=== PATIENT | male | born 1995 | race Caucasian/White ===

== ENCOUNTER 2019-06-29 08:51 | Emergency (ER) | payer BC ==
[2019-06-29 09:10] VITALS: BP 148/88
--- NOTE | 2019-06-29 09:48 | UC ---
Respiratory Complaint HPI - HPI Summary HPI Summary: cough x 7 days cough is dry , worse with deep breathing / better with rest, sore throat, pnd, nasal congestion , fever, chills body aches no recent travels mild nausea, - History of Current Complaint Chief Complaint: UCRespiratory Stated Complaint: RUNNY NOSE,VOMITTING Time Seen by Provider: 06/29/19 09:34 Hx Obtained From: Patient Onset/Duration: Gradual Onset, Lasting Days - 7, Still Present Timing: Constant Severity Initially: Moderate Severity Currently: Moderate Pain Intensity: 0 Character: Cough: Nonproductive Aggravating Factors: Exertion, Deep Breaths Alleviating Factors: Nothing Associated Signs And Symptoms: Positive: Fever, Chills, URI, Nasal Congestion. Negative: Dizziness - Allergies/Home Medications Allergies/Adverse Reactions: Allergies Allergy/AdvReac Type Severity Reaction Status Date / Time pollen extracts Allergy Runny Nose Verified 06/29/19 09:05 Home Medications: Home Medications NK [No Home Medications Reported] 06/29/19 [History Confirmed 06/29/19] PMH/Surg Hx/FS Hx/Imm Hx Previously Healthy: Yes - Surgical History Surgical History: None - Family History Known Family History: Negative: Diabetes - Social History Alcohol Use: Weekly Substance Use Type: Marijuana Substance Use Comment - Amount & Last Used: Occasionally Smoking Status (MU): Never Smoked Tobacco Review of Systems All Other Systems Reviewed And Are Negative: Yes Constitutional: Positive: Fever, Chills, Fatigue Skin: Positive: Negative Eyes: Positive: Negative ENT: Positive: Sore Throat, Nasal Discharge Respiratory: Positive: Cough Cardiovascular: Positive: Negative Is Patient Immunocompromised?: No Physical Exam Triage Information Reviewed: Yes Appearance: Well-Appearing, No Pain Distress, Well-Nourished Vital Signs: Initial Vital Signs Temp 98.1 F 06/29/19 08:58 Pulse 89 06/29/19 08:58 Resp 18 06/29/19 08:58 BP 148/88 06/29/19 08:58 Pulse Ox 99 06/29/19 08:58 Vital Signs Reviewed: Yes Eye Exam: Normal Eyes: Positive: Conjunctiva Clear ENT: Positive: Normal ENT inspection, Hearing grossly normal, Pharynx normal, Nasal congestion, Nasal drainage, TMs normal. Negative: Pharyngeal erythema Neck: Positive: Supple, Nontender, No Lymphadenopathy Respiratory: Positive: Chest non-tender, Lungs clear, Normal breath sounds Cardiovascular: Positive: RRR, No Murmur, Pulses Normal Abdominal Exam: Normal Respiratory Course/Dx - Course Course Of Treatment: elevated BP : monitor your bp at home , follow up with your pcp in one week - Differential Dx/Diagnosis Provider Diagnosis: Viral illness, Elevated BP without diagnosis of hypertension Discharge ED - Sign-Out/Discharge Documenting (check all that apply): Patient Departure All imaging exams completed and their final reports reviewed: No Studies - Discharge Plan Condition: Stable Disposition: HOME Patient Education Materials: Viral Syndrome (ED) Forms: *Work Release Referrals: Monica Sellers MD [Primary Care Provider] - If Needed - Billing Disposition and Condition Condition: STABLE Disposition: Home
== END 2019-06-29 09:46 | disposition home or self-care (01) ==
LOC: UCCORT 08:51
DX: B34.9 Viral infection, unspecified (principal); I10 Essential (primary) hypertension; R05 Cough; J02.9 Acute pharyngitis, unspecified; R09.82 Postnasal drip; R09.81 Nasal congestion; R68.83 Chills (without fever); R52 Pain, unspecified; R11.0 Nausea; R53.83 Other fatigue; R09.89 Other specified symptoms and signs involving the circulatory and respiratory systems; Z91.09 Other allergy status, other than to drugs and biological substances
CPT/HCPCS: 99201; G0463

== ENCOUNTER 2019-07-13 08:26 | Emergency (ER) | payer BC, OTHER ==
[2019-07-13 09:36] VITALS: BP 127/60
--- NOTE | 2019-07-13 11:07 | UC ---
FLU HPI - HPI Summary HPI Summary: Patient concerned about covid. Patient was a video conference with me Patient's a 24-year-old male who states on 06/28 he is evaluated urgent care diagnosis of a viral syndrome. Patient states he was having high fevers and body aches. Patient states he was feeling better for about 5 days when he certainly gets again. Patient states the last 5 days he's been having body aches, having nausea with some vomiting. Having tactile fevers. Patient also with a cough. No sore throat. No shortness of breath. Cough is nonproductive. No chest pain. No abdominal pain. No diarrhea. Patient was able to take Tylenol E something small this morning. Patient states he lives with his parents. Patient works at [employer] and has had lots of contact with the public. Patient's concerned he could have covid. Patient does not have a history of lung disease. Patient does not vape or use tobacco. Patient's medications as noted in the EMR by triage was reviewed this visit. - History of Current Complaint Chief Complaint: UCRespiratory Stated Complaint: SORE THROAT,VOMITING,CONGESTION Time Seen by Provider: 07/13/19 08:57 Hx Obtained From: Patient, Medical Records Pain Intensity: 0 Pain Scale Used: 0-10 Numeric - Allergy/Home Medications Allergies/Adverse Reactions: Allergies Allergy/AdvReac Type Severity Reaction Status Date / Time pollen extracts Allergy Runny Nose Verified 07/13/19 08:29 Home Medications: Home Medications NK [No Home Medications Reported] 06/29/19 [History Confirmed 07/13/19] PMH/Surg Hx/FS Hx/Imm Hx Previously Healthy: Yes - Surgical History Surgical History: None - Family History Known Family History: Negative: Diabetes - Social History Occupation: Employed Full-time Lives: With Family Alcohol Use: Occasionally Substance Use Type: None Substance Use Comment - Amount & Last Used: Occasionally Smoking Status (MU): Never Smoked Tobacco Review of Systems All Other Systems Reviewed And Are Negative: No Constitutional: Positive: Fever - tactile ENT: Positive: Sore Throat Respiratory: Positive: Cough. Negative: Shortness Of Breath, Other - no sputum Cardiovascular: Positive: Negative. Negative: Palpitations, Chest Pain Gastrointestinal: Positive: Vomiting. Negative: Abdominal Pain Genitourinary: Positive: Negative Is Patient Immunocompromised?: No Physical Exam - Summary Physical Exam Summary: Vital Signs Reviewed: Yes A+Ox3, no distress, speaking full easy sentences, no distress Eyes: Conjunctiva Clear, ENT: Hearing grossly normal mmmoist Neck: Positive: Supple Respiratory: Positive: No respiratory distress, No accessory muscle use, no audible wheeze, speaking full easy sentences Cardiovascular: pt skin pink - consistent with normal perfusion Musculoskeletal Exam: MADRID x 4 without difficulty Strength Intact, ROM Intact Neurological: Positive: Alert, appropriate, normal mentation Psychological: Positive: Normal Response To pharmacovigilance safety expert Skin: Positive: no rash, no ecchymosis Triage Information Reviewed: Yes Vital Signs: Initial Vital Signs Temp 97.7 F 07/13/19 08:30 Pulse 70 07/13/19 08:30 Resp 16 07/13/19 08:30 BP 127/60 07/13/19 08:30 Pulse Ox 99 07/13/19 08:30 Flu Course/Dx - Course Course Of Treatment: Patient presents to urgent care concerned he could have Covid. Patient is a 24- year-old male who had a viral syndrome approximately 2 weeks ago. Patient states improvement in the last 5 days when he got sick again. Patient states he works at [employer] and has exposure to the public frequently. Patient states he does not consistently wear mask and gloves at work. Patient now with body aches, tactile temperature, sore throat, and non-productive cough. Patient denies any shortness of breath. On exam vital signs are stable. Patient Tylenol health visit to decrease exposure was not concerning. We'll check a strep. This is negative we'll test for strep. It is negative we'll test for Covid. Discussed with patient isolation until test results back. Rest of patient needs to stay isolated from parents in house. Tylenol. Strict return precautions discussed. Patient understanding and agreeable with plan. - Differential Dx/Diagnosis Provider Diagnosis: Suspected COVID-19 virus infection Discharge ED - Sign-Out/Discharge Documenting (check all that apply): Patient Departure All imaging exams completed and their final reports reviewed: No Studies - Discharge Plan Condition: Stable Disposition: HOME Forms: COVID-19 Tested & Isolation Referrals: Monica Sellers MD [Primary Care Provider] - Additional Instructions: - Stay well hydrated - drink plenty of non-alcoholic, non-carbonated beverages - Okay to take Tylenol every 6 hours for fever - Take allergy medication as previously - If you develop shortness of breath, uncontrolled fever, uncontrolled vomiting or any other concerns it is recommended you go to the emergency department for further evaluation and treatment - Billing Disposition and Condition Condition: STABLE Disposition: Home
== END 2019-07-13 09:45 | disposition home or self-care (01) ==
LOC: UCCORT 08:26
DX: M79.10 Myalgia, unspecified site (principal); R50.9 Fever, unspecified; J02.9 Acute pharyngitis, unspecified; R05 Cough; Z20.828 Contact with and (suspected) exposure to other viral communicable diseases; Z91.09 Other allergy status, other than to drugs and biological substances
CPT/HCPCS: 87635; 87651; 99211; G0463